=== PATIENT | male | born 1935 | race Caucasian/White ===

== ENCOUNTER 2017-04-01 05:50 | Emergency (ER) | payer MEDICARE, OTHER ==
[2017-04-01] MEDS ORDERED: Benzonatate 100 MG CAP ONE (06:12)
== END 2017-04-01 06:30 | disposition home or self-care (01) ==
LOC: BURERS 05:50
DX: J11.1 Influenza due to unidentified influenza virus with other respiratory manifestations (principal); E11.9 Type 2 diabetes mellitus without complications; E78.5 Hyperlipidemia, unspecified; I10 Essential (primary) hypertension; Z79.82 Long term (current) use of aspirin; Z79.84 Long term (current) use of oral hypoglycemic drugs; Z79.899 Other long term (current) drug therapy
CPT/HCPCS: 99283

== ENCOUNTER 2017-04-02 18:44 | Inpatient (IN) | payer MEDICARE, OTHER ==
[2017-04-02 19:14] LABS: Eosinophils 1 % (0-10); Hemoglobin 12.6 g/dL (14.0-18.0); Lymphocytes 27 % (21-51); MDiff Complete? YES; Mean Corpuscular HGB CONC 33.5 g/dL (32.0-36.0); Mean Corpuscular Hemoglobin 30.2 pg (27.0-31.0); Mean Corpuscular Volume 90.3 fl (80.0-94.0); Mean Platelet Volume 6.3 fL (7.4-10.4); Monocytes 10 % (0-10); Neutrophil 61 % (42-75); Platelet Count 117 thou/uL (130-400); RBC Distribution Width 11.6 % (11.5-14.5); Red Blood Cell (RBC) Count 4.18 mill/uL (4.70-6.10); White Blood Cell (WBC) Count 5.7 thou/uL (4.8-10.8)
[2017-04-02 19:25] LABS: ALT (SGPT) 39 U/L (8-55); AST (SGOT) 41 U/L (5-34); Albumin 4.3 g/dL (3.4-4.8); Alkaline Phosphatase 66 U/L (40-150); Anion Gap 18 mmol/L (10-20); BUN (Urea Nitrogen) 27 mg/dL (8.4-25.7); Bilirubin, Total 0.5 mg/dL (0.2-1.2); Calc. Creatinine Clearance 0 mL/min (70-130); Calcium 9.3 mg/dL (7.8-10.44); Carbon Dioxide 24 mmol/L (23-31); Chloride 100 mmol/L (98-107); Estimated GFR-MDRD 49; Globulin 3.1 g/dL (2.4-3.5); Glucose 234 mg/dL (83-110); Potassium 4.6 mmol/L (3.5-5.1); Protein, Total 7.4 g/dL (5.8-8.1); Sodium 137 mmol/L (136-145)
[2017-04-02] MEDS ORDERED: Albuterol Sulfate 1.25 MG/3 ML NEB ONE (20:07)
[2017-04-02] MEDS ORDERED: Ketorolac Tromethamine 30 MG/ML VIAL ONE (20:07)
[2017-04-02] MEDS ORDERED: cefTRIAXone\\ROCEPHIN 2 GM VIAL ONE (20:15)
[2017-04-02] MEDS ORDERED: Acetaminophen/Codeine 30-300mg Tablet ONE (20:16)
[2017-04-02] MEDS ORDERED: Oseltamivir 75 MG CAP ONE (20:38)
[2017-04-02 21:20] VITALS: BMI 28.7
[2017-04-02] MEDS ORDERED: Ondansetron ODT 4 MG TAB SL PRN (21:33)
[2017-04-02] MEDS ORDERED: HYDROcodone/Acetaminophen 5/325 mg Tablet PO PRN ×2 (21:33)
[2017-04-02] MEDS ORDERED: Acetaminophen 325 MG TAB PO PRN (21:33)
[2017-04-02] MEDS ORDERED: Ondansetron HCl/PF 4 MG/2 ML Vial IVP PRN (21:33)
[2017-04-02] MEDS ORDERED: Promethazine DM 6.25-15mg/5ml 120 ML BOT PO PRN (21:38)
[2017-04-02] MEDS ORDERED: Insulin Regular 300 UNITS/3 ML VIAL ONE (21:46)
--- NOTE | 2017-04-02 22:23 | RAD ---
PORTABLE CHEST 04/02/17 An AP portable film at 1854 is compared with an 11/01/10 study. Minimal cardiomegaly is no different than before. There is no congestive change, pleural effusion, or focal pulmonary infiltrate. There are no signs of pneumonia. Cardiac pacer is in place. IMPRESSION: No acute thoracic finding. POS: HOME
[2017-04-02] MEDS: Sodium Chloride 0.9% 1,000 ML IV SCH (22:36)
[2017-04-03] MEDS: Albuterol Sulfate 2.5 mg/3 ml Neb NEB SCH ×4 (00:13→18:26)
[2017-04-03] MEDS: Sodium Chloride 0.9% 1,000 ML IV SCH ×3 (05:29→17:40)
[2017-04-03] MEDS ORDERED: Dextrose 50% Abboject 50 ML SYRINGE SLOW IVP PRN (08:15)
[2017-04-03] MEDS ORDERED: Dextrose 5% in Water 1,000 ML IV PRN (08:15)
[2017-04-03] MEDS ORDERED: FLU VACC TS2017-18 (>65YR) 0.5 ML SYRINGE IM ONE (09:00)
[2017-04-03] MEDS ORDERED: Oseltamivir 75 MG CAP ONE ×2 (09:45→20:23)
[2017-04-03] MEDS: Oseltamivir 75 MG CAP PO SCH ×2 (09:49→20:36)
[2017-04-03] MEDS: Lisinopril 20 MG TAB PO SCH (09:50)
[2017-04-03] MEDS: Amlodipine 5 MG TAB PO SCH (09:51)
[2017-04-03] MEDS: Famotidine 20 MG TAB PO SCH ×2 (09:52→20:37)
[2017-04-03] MEDS: Hydrochlorothiazide 25 MG TAB PO SCH (09:52)
[2017-04-03] MEDS: metFORMIN 500 MG TAB PO SCH ×2 (09:53→17:35)
[2017-04-03] MEDS: HumaLOG 300 UNITS/3 ML VIAL SC PRN ×2 (12:54→17:31)
[2017-04-03] MEDS: glyBURIDE 5 MG TAB PO SCH (17:34)
[2017-04-03] MEDS ORDERED: Sterile Water 10 ML ONE (20:19)
[2017-04-03] MEDS: Atorvastatin Calcium 10 MG TAB PO SCH (20:37)
[2017-04-03] MEDS ORDERED: cefTRIAXone\\ROCEPHIN 1 GM VIAL SLOW IVP SCH (21:00)
[2017-04-04] MEDS: Albuterol Sulfate 2.5 mg/3 ml Neb NEB SCH ×4 (00:59→18:31)
[2017-04-04] MEDS: Sodium Chloride 0.9% 1,000 ML IV SCH (02:28)
[2017-04-04 06:45] LABS: Anion Gap 15 mmol/L (10-20); BUN (Urea Nitrogen) 13 mg/dL (8.4-25.7); Calc. Creatinine Clearance 92 mL/min (70-130); Calcium 8.4 mg/dL (7.8-10.44); Carbon Dioxide 20 mmol/L (23-31); Chloride 106 mmol/L (98-107); Estimated GFR-MDRD Greater than 90; Glucose 129 mg/dL (83-110); Potassium 3.6 mmol/L (3.5-5.1); Sodium 137 mmol/L (136-145)
[2017-04-04 07:16] LABS: Hemoglobin 10.4 g/dL (14.0-18.0); Mean Corpuscular HGB CONC 32.6 g/dL (32.0-36.0); Mean Corpuscular Hemoglobin 29.7 pg (27.0-31.0); Mean Corpuscular Volume 90.9 fL (80.0-94.0); Mean Platelet Volume 6.2 fL (7.4-10.4); Platelet Count 87 thou/uL (130-400); RBC Distribution Width 11.6 % (11.5-14.5); Red Blood Cell (RBC) Count 3.49 mill/uL (4.70-6.10); White Blood Cell (WBC) Count 5.8 thou/uL (4.8-10.8)
[2017-04-04 07:17] LABS: #Lymphocytes 1.5 thou/uL (1.20-3.40); #Monocytes 0.6 thou/uL (0.11-0.59); #Neutrophils 3.7 thou/uL (1.40-6.50); %Basophils 0.4 % (0.0-1.0); %Eosinophils 0.4 % (0.0-10.0); %Lymphocytes 25.2 % (21.0-51.0)
[2017-04-04 07:19] LABS: PLT Morphology Comment Appears Adequate
[2017-04-04 07:20] LABS: RBC Morphology Normal
[2017-04-04] MEDS: metFORMIN 500 MG TAB PO SCH ×3 (08:58→17:12)
[2017-04-04] MEDS: Hydrochlorothiazide 25 MG TAB PO SCH (08:58)
[2017-04-04] MEDS: Lisinopril 20 MG TAB PO SCH (08:59)
[2017-04-04] MEDS: Amlodipine 5 MG TAB PO SCH (09:00)
[2017-04-04] MEDS: Famotidine 20 MG TAB PO SCH ×2 (09:00→20:40)
[2017-04-04] MEDS: glyBURIDE 5 MG TAB PO SCH ×2 (09:00→17:13)
[2017-04-04] MEDS ORDERED: Oseltamivir 75 MG CAP ONE ×2 (09:06→20:37)
[2017-04-04] MEDS: Oseltamivir 75 MG CAP PO SCH ×2 (09:08→20:40)
[2017-04-04] MEDS: HumaLOG 300 UNITS/3 ML VIAL SC PRN (12:25)
[2017-04-04] MEDS: Atorvastatin Calcium 10 MG TAB PO SCH (20:40)
[2017-04-05] MEDS: Albuterol Sulfate 2.5 mg/3 ml Neb NEB SCH ×3 (00:43→13:44)
[2017-04-05 06:19] VITALS: BP 145/70
[2017-04-05] MEDS: Hydrochlorothiazide 25 MG TAB PO SCH (09:03)
[2017-04-05] MEDS: glyBURIDE 5 MG TAB PO SCH (09:03)
[2017-04-05] MEDS: metFORMIN 500 MG TAB PO SCH (09:03)
[2017-04-05] MEDS: Amlodipine 5 MG TAB PO SCH (09:04)
[2017-04-05] MEDS: Famotidine 20 MG TAB PO SCH (09:04)
[2017-04-05] MEDS: Lisinopril 20 MG TAB PO SCH (09:05)
[2017-04-05] MEDS: HumaLOG 300 UNITS/3 ML VIAL SC PRN (09:06)
[2017-04-05] MEDS ORDERED: Oseltamivir 75 MG CAP ONE (09:18)
[2017-04-05] MEDS: Oseltamivir 75 MG CAP PO SCH (09:21)
[2017-04-05 13:56] VITALS: TEMP 98
--- NOTE | 2017-04-05 20:06 | DIS ---
DATE OF ADMISSION: 04/02/2017 DATE OF DISCHARGE: 04/05/2017 ADMISSION DIAGNOSES: 1. Influenza A. 2. Dehydration. 3. Hypertension. 4. Type 2 diabetes. DISCHARGE DIAGNOSES: 1. Influenza A. 2. Dehydration. 3. Hypertension. 4. Type 2 diabetes. ATTENDING PHYSICIAN: Angelic Herrera D.O. PROCEDURES: 1. White count from date of admission 5.7, hemoglobin 12.6, hematocrit 37.8, platelets 117. Chemistry profile from the date of admission significant for BUN of 27 and creatinine 1.39, which improved to 13 and 0.81 after IV fluid administration. 2. Lactic acid 2.3 on admission, subsequently lowered to 2.0. 3. LFTs unremarkable. 4. Calcium 8.4. 5. Blood cultures x2 negative at 48 hours. 6. Prior influenza A testing from a day prior to admission, positive for influenza A. HISTORY AND PHYSICAL EXAMINATION: Please see written reports from me from the day of admission. HOSPITAL COURSE: Mr. Lira is an 82-year-old male who presented previously to the ER with complaint of fever and chills and tested positive for influenza A. He was home and subsequently became more weak with decreased urine output and presented back to the emergency room. He was found to be dehydrated and febrile. He was admitted and given IV fluid rehydration and Tamiflu, which was continued up to the date of his discharge. He was empirically covered with Rocephin pending outcome of his chest x-ray. He was not having elevation of his white count and chest x-ray subsequently was read out as negative. Rocephin was discontinued. He continued to improve throughout his hospitalization, had blood cultures negative x2 at 48 hours and on the date of discharge, he is back to his baseline status with the exception of some mild fatigue and intermittent wheezing. He has been afebrile for greater than 48 hours. He will be discharged home on a complete course of Tamiflu and a prescription for albuterol inhaler to be taken on an as needed basis for wheezing. However, I do not hear any wheezing on his examination at the present time. His lungs are clear and he is oxygenating at 99% on room air. DISPOSITION: Discharged to home. FOLLOWUP: Follow up with PCP, Dr. Rosales in approximately 10 days. MEDICATIONS: The patient will continue his home regimen with the addition of; 1. Oseltamivir 75 mg p.o. b.i.d. x3 days. 2. Albuterol HFA 2 puffs q.4 hours p.r.n. shortness of breath. 3. Metformin 500 mg p.o. b.i.d. 4. Glyburide 5 mg p.o. b.i.d. 5. Effient 10 mg p.o. daily. 6. Zestril 20 mg p.o. daily. 7. HCTZ 12.5 mg p.o. daily. 8. Atorvastatin 20 mg p.o. daily. 9. Aspirin 81 mg p.o. daily. 10. Amlodipine 5 mg p.o. daily. MTDD
== END 2017-04-05 14:58 | disposition home or self-care (01) | DRG 153 ==
LOC: BURERS 18:44 → BURMED 20:15
PROVIDERS: ADMIT Family Medicine; ATTEND Family Medicine
DX: J11.1 Influenza due to unidentified influenza virus with other respiratory manifestations (principal); E86.0 Dehydration; E11.9 Type 2 diabetes mellitus without complications; Z95.1 Presence of aortocoronary bypass graft; I10 Essential (primary) hypertension; E78.5 Hyperlipidemia, unspecified; Z95.5 Presence of coronary angioplasty implant and graft
CPT/HCPCS: 36415; 36416; 71045; 80048; 80053; 83605; 85025; 87040; 94640; A4216; J0696; J1815; J1885; J7611; Q0162

== ENCOUNTER 2020-03-03 16:32 | Emergency (ER) | payer MEDICARE, OTHER ==
[~2020-03-03 16:32] MED LIST: Iopamidol 370 76% 100 ML VIAL ONE
[2020-03-03 17:45] LABS: #Basophils 0.1 thou/uL (0.0-0.2); #Eosinphils 0.2 thou/uL (0.0-0.7); #Lymphocytes 1.7 thou/uL (1.20-3.40); #Monocytes 0.6 thou/uL (0.11-0.59); #Neutrophils 6.9 thou/uL (1.40-6.50); %Basophils 0.7 % (0.0-1.0); %Eosinophils 1.8 % (0.0-10.0); %Lymphocytes 18.5 % (21.0-51.0); %Monocytes 6.1 % (0.0-10.0); Hemoglobin 14.1 g/dL (14.0-18.0); Mean Corpuscular HGB CONC 31.9 g/dL (32.0-36.0); Mean Corpuscular Hemoglobin 29.9 pg (27.0-31.0); Mean Corpuscular Volume 93.5 fL (78.0-98.0); Mean Platelet Volume 7.4 fL (7.4-10.4); Platelet Count 193 thou/uL (130-400); RBC Distribution Width 12.5 % (11.5-14.5); Red Blood Cell (RBC) Count 4.73 mill/uL (4.70-6.10); White Blood Cell (WBC) Count 9.4 thou/uL (4.8-10.8)
[2020-03-03 17:50] LABS: ALT (SGPT) 35 U/L (8-55); AST (SGOT) 26 U/L (5-34); Alkaline Phosphatase 60 U/L (40-110); Anion Gap 15 mmol/L (10-20); BUN (Urea Nitrogen) 19 mg/dL (8.4-25.7); Bilirubin, Total 1.1 mg/dL (0.2-1.2); Calc. Creatinine Clearance 0 mL/min (70-130); Calcium 9.8 mg/dL (7.8-10.44); Carbon Dioxide 27 mmol/L (23-31); Chloride 99 mmol/L (98-107); Globulin 3.7 g/dL (2.4-3.5); Glucose 137 mg/dL (83-110); Lipase 30 U/L (8-78); Potassium 4.3 mmol/L (3.5-5.1); Protein, Total 8.7 g/dL (5.8-8.1); Sodium 137 mmol/L (136-145)
[2020-03-03 18:07] LABS: CKMB 2.2 ng/mL (0-6.6)
[2020-03-03] MEDS ORDERED: Piperacillin/Tazobactam 4.5 GM VIAL ONE ×2 (18:51→18:53)
[2020-03-03] MEDS ORDERED: Aspirin 300 MG Suppository ONE (18:51)
[2020-03-03] MEDS ORDERED: Aspirin Chewable 81 MG TAB ONE (18:54)
[2020-03-03] MEDS ORDERED: Sodium Chloride 0.9% 0 ML ONE (18:55)
[2020-03-03] MEDS ORDERED: Sodium Chloride 0.9% 100 ML ONE (18:55)
--- NOTE | 2020-03-03 19:03 | RAD ---
CHEST TWO VIEWS: 03/03/20 Comparison is made with the 04/02/17 study. The cardiac pacer remains in place as before. Mild cardiomegaly is no different than previously. Ther e is no vascular congestion, edema, or pleural effusion. No focal pulmonary infiltrates were seen. Th e mediastinum was unremarkable. IMPRESSION: No acute thoracic finding. POS: HOME
[2020-03-03 19:28] LABS: Bilirubin Negative (Negative); Blood, Urine Negative (Negative); Clarity Clear (Clear); Glucose, Urine (Dipstick) Negative (Negative); Ketone, Urine Negative (Negative); Leukocyte Negative (Negative); Nitrite Negative (Negative); Protein, Urine (Dipstick) Negative (Neg-Trace)
--- NOTE | 2020-03-03 19:33 | CT ---
CT ANGIO OF THE CHEST AND ABDOMEN (Aortic dissection protocol) 03/03/[address] of the chest and abdomen was done after a bolus of IV contrast to cover the aorta from the arch down through the bifurcation distally. MIP reconstructions in various planes were done afterward s. There is no sign of aortic aneurysm or dissection. Arteriosclerotic change is seen throughout the aor ta, as well as the coronary arteries. The celiac artery, SMA and MACIEJ fill normally with some plaque s een at each of their origins. The same is true of each of the renal arteries, and there is probably a n accessory renal artery on the left side. Both common iliac arteries fill normally, as do the buyer intern al and external iliac arteries. 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 Th ere is no sign of pericardial effusion, No mediastinal mass or adenopathy was seen. The lungs are tapan ar except for a few areas of scarring and atelectasis. There are no effusions. Mild degenerative glynn ges are seen in the thoracic spine. CT of the abdomen shows no acute findings in the liver, spleen, pancreas, adrenal glands, or inferior vena cava. The gallbladder is large, being just over 9 cm in length but it was this size on a 2015 C T. There are some calcified gallstones seen in the neck region. There is no sign of thickening of gal lbladder. There are various lucencies associated with the kidneys, particularly the left kidney. Thes e are most likely all cysts. The prior noncontrast CT in 2015 suggested such as well. There is no sig n of obstruction. The visible bowel shows no distention to suggest obstruction. A moderate amount of fecal material is present in the colon. There is no sign of bowel wall thickening. No free air or free fluid was seen. Degenerative changes are present in the patient's lumbar spine. At particularly L3-L4 and L4-L5 there is crowding of the thecal sac by facet and ligamentous hypertrophy as well as some concentric bulgin g of the discs. No acute fractures were appreciated in the spine. IMPRESSION: 1. No evidence of aortic aneurysm or dissection. There are signs of arterial sclerotic change, i ncluding the coronary arteries. 2. Large gallbladder with gallstones, but the size is not unlike a study done five years ago. 3. Presumed renal cysts, particularly on the left. 4. Mild constipation. Preliminary report discussed with Dr. Valdez at 1842 on 03/03/20. POS: HOME
== END 2020-03-03 19:50 | disposition short-term general hospital (02) ==
LOC: BURERS 16:32
DX: I24.9 Acute ischemic heart disease, unspecified (principal); R77.8 Other specified abnormalities of plasma proteins; J10.1 Influenza due to other identified influenza virus with other respiratory manifestations; E78.00 Pure hypercholesterolemia, unspecified; E11.9 Type 2 diabetes mellitus without complications; I10 Essential (primary) hypertension; Z79.82 Long term (current) use of aspirin; Z79.899 Other long term (current) drug therapy; Z79.84 Long term (current) use of oral hypoglycemic drugs
CPT/HCPCS: 36416; 51701; 71046; 71275; 74174; 80053; 81003; 82553; 83605; 83690; 84484; 85025; 87040; 87804; 93005; 94760; 96365; J2543; J3490; Q9967

== ENCOUNTER 2021-10-21 04:16 | Emergency (ER) | payer MEDICARE, OTHER ==
[2021-10-21 05:22] LABS: #Basophils 0.1 thou/uL (0.0-0.2); #Eosinphils 0.4 thou/uL (0.0-0.7); #Lymphocytes 1.6 thou/uL (1.20-3.40); #Monocytes 0.7 thou/uL (0.11-0.59); #Neutrophils 5.9 thou/uL (1.40-6.50); %Basophils 0.7 % (0.0-1.0); %Eosinophils 4.2 % (0.0-10.0); %Lymphocytes 18.6 % (21.0-51.0); %Monocytes 8.2 % (0.0-10.0); %Neutrophils 68.3 % (42.0-75.0); Hemoglobin 9.4 g/dL (14.0-18.0); Mean Corpuscular HGB CONC 32.5 g/dL (32.0-36.0); Mean Corpuscular Hemoglobin 30.5 pg (27.0-31.0); Mean Platelet Volume 5.8 fL (7.4-10.4); Platelet Count 216 thou/uL (130-400); Red Blood Cell (RBC) Count 3.08 mill/uL (4.70-6.10); White Blood Cell (WBC) Count 8.7 thou/uL (4.8-10.8)
[2021-10-21 05:58] LABS: CKMB 2.8 ng/mL (0-6.6)
[2021-10-21 06:22] LABS: ALT (SGPT) 12 U/L (8-55); AST (SGOT) 13 U/L (5-34); Albumin 3.9 g/dL (3.4-4.8); Alkaline Phosphatase 59 U/L (40-110); Anion Gap 18 mmol/L (10-20); BUN (Urea Nitrogen) 30 mg/dL (8.4-25.7); Bilirubin, Total 0.6 mg/dL (0.2-1.2); Calc. Creatinine Clearance 0 mL/min (70-130); Calcium 9.4 mg/dL (7.8-10.44); Carbon Dioxide 19 mmol/L (23-31); Chloride 112 mmol/L (98-107); Estimated GFR 36; Globulin 2.9 g/dL (2.4-3.5); Glucose 126 mg/dL (83-110); Potassium 5.2 mmol/L (3.5-5.1); Protein, Total 6.8 g/dL (5.8-8.1); Sodium 144 mmol/L (136-145)
[2021-10-21] MEDS ORDERED: Aspirin Chewable 81 MG TAB ONE (06:39)
[2021-10-21] MEDS ORDERED: Furosemide 40 MG/4 ML VIAL ONE (08:44)
[2021-10-21] MEDS ORDERED: Nitroglycerin 2% Ointment 1 INCH/1 GM Packet ONE (08:44)
== END 2021-10-21 09:20 | disposition short-term general hospital (02) ==
LOC: BURERS 04:16
DX: I11.0 Hypertensive heart disease with heart failure (principal); I50.9 Heart failure, unspecified; E78.5 Hyperlipidemia, unspecified; E11.9 Type 2 diabetes mellitus without complications
CPT/HCPCS: 71045; 80053; 82553; 83880; 84484; 85025; 93005; 96374; J1940